=== PATIENT | male | born 1955 | race Caucasian/White ===

== ENCOUNTER 2024-01-20 11:17 | Day surgery (SDC) | payer MEDICARE, OTHER, SELFPAY ==
[2024-01-14 12:14] VITALS: BMI 25.1
[2024-01-20] VITALS (15 sets, daily range): BP systolic 108–159; BP diastolic 70–86; PULSE 74–98; RESP 8–19; TEMP 35.8–36.7; O2SAT 94–100; BMI 25.1
--- NOTE | 2024-01-20 | PATH_ITS ---
[facility] Accession Number: [id number] No. of containers..01 Tissue . 01 Material submitted: . prostate - PROSTATE CHIPS . 01 Diagnosis: A. PROSTATE CHIPS, EXCISIONAL BIOPSY: Benign prostatic stroma with benign epithelium and mild chronic inflammation. MRV 01/27/2024 1315 Local . 01 Electronically signed: . Mary Alice Cesar MD, Pathologist NPI- [id number] . 01 Gross description: . Received in formalin with two identifiers and prostate chips, are multiple michaels soft tissue fragments admixed with hemorrhagic material weighing less than 1 gram, and aggregating to 1.8 x 1.7 x 0.6 cm. Filtered and submitted entirely in A1. ([id number]) /MRV 01/22/2024 1836 Local . 01 Pathologist provided ICD-10: N40.1 . 01 CPT . 629720 Specimen Comment: A courtesy copy of this report has been sent to [phone] Performed at: [address] [address], [place], [place] [id number] MD Jass Lam MD Phone: [phone]
[2024-01-20] MEDS: LACTATED RINGERS 1,000 ML 21 ML IV ×2 (12:11→13:48)
[2024-01-20 12:17] LABS: Hemoglobin 15.4 g/dL (13.5-17.5)
--- NOTE | 2024-01-20 12:31 | PM.PREOP ---
Pre-operative Note Interval Note History & Physical reviewed/Exam performed by Physician: Yes Changes to H&P: No
[2024-01-20] MEDS: CEFAZOLIN 2 GM/100 ML PREMIX 100 ML IV (12:47)
[2024-01-20] MEDS: ACETAMINOPHEN IV 1,000 MG/100 ML VIAL 400 MG IV (12:54)
--- NOTE | 2024-01-20 12:56 | SUR.OPER ---
Lithotomy on padded OR bed, head on pillow, left arm padded and tucked, right arm secured on padded arm board at <90 degrees abduction. Legs secured in padded yellow fins stirrups.
[2024-01-20] MEDS: TRANEXAMIC ACID 1,000 MG in SODIUM CHLORIDE 0.9% 100 ML 200 MG IV ×2 (13:18→13:49)
--- NOTE | 2024-01-20 14:08 | PM.OP.1 ---
Operative Date/Time/Diagnoses Date of procedure: 01/20/24 Time of procedure: 13:45 Pre-op diagnosis: 1. Bladder outlet obstruction. 2. BPH. 3. Dissatisfaction with medical therapy. Post-op diagnosis: same Procedure & Clinicians Procedure: 1. Cystoscopy/Aquablation. 2. Cystoscopy/Transurethral resection of prostate. 3. Transrectal ultrasonography-diagnostic and guidance. Same procedure as scheduled: Yes Indications: 1. Bladder outlet obstruction. 2. BPH. 3. Dissatisfaction with medical therapy. Surgeon: Rosalba Chaudhary Click Yes if Unassisted: Yes Anesthesia Type: General Operative Notes Findings: 1. Unchanged versus endoscopic findings documented in preoperative note and consultation. Closure Type: not applicable Specimen(s): other (TUR chips specimen.) Applied: catheter (24 Andorran three-way hematuria catheter to normal saline continuous bladder irrigation.) Estimated Blood Loss (mL): 5 Procedure in detail: The patient was positioned in supine and administered general anesthesia. He was then repositioned in semi-lithotomy in the lower abdomen, genitalia, and groin then prepped and draped in sterile fashion. The transrectal ultrasound probe was positioned in the rectal vault appropriately a for optimal visualization of the lower urinary tract. The treatment hand piece was then inserted under direct visualization and positioned parallel and inappropriate alignment with the TRUS probe. Alternating between sagittal and transverse image views treatment planning was undertaken. Treatment depth was established in the transverse plane and boundary cursor placement was conducted at 3, 6, and 9 positions. In the sagittal view, the very proximal most margin of prostate to be treated, bladder neck, mid prostate, verumontanum and sphincter were delineated. Cursor boundary markers were placed were appropriate. The hand piece probe was then advanced into the bladder lumen and the water jet was calibrated at the 3, 6, and 9 positions in the transverse and sagittal imaging planes. First pass was then conducted under direct and ultrasonographic guidance. Re-evaluation revealed only minor adjustments were required in positioning the number 1, 2, and 3 positions. A 2nd treatment pass was then conducted. Now the treatment and Peace was removed and the resectoscope was introduced and passed the lower urinary tract under direct visualization. The bladder contents were then irrigated with the [employer] evacuator. The resectoscope was then fitted with the resecting loop and working element. Focal neck resection and cautery was undertaken from approximately the 2, to the 10 position at the bladder neck. Further TUR was conducted more proximally of the treated and devascularized tissue. Hemostasis was attained continuously and as indicated. Anteriorly, a few small mucosal bleeders were identified and were effectively cauterized. The resectoscope was then advanced into the bladder lumen and again the [employer] evacuator was utilized to clear the bladder lumen and prostate fossa of all tissue debris, chips, and clot. A final inspection revealed excellent hemostasis. The bladder was then left partially filled and the resectoscope was removed. A 24 Andorran, 3 way hematuria catheter was then advanced in the lower urinary tract over a malleable catheter guide. The balloon was inflated to 30 cc. A catheter tip syringe was then used to irrigate the catheter clear before connecting to sterile normal saline continuous bladder irrigation and gravity drainage. The patient was then awakened, transferred to [facility], then transferred to recovery in stable condition. Complications: none Post-operative Condition: stable Disposition: PACU Plan for aftercare: Admit to acute care.
--- NOTE | 2024-01-20 15:14 | SUR.PHASEI ---
PT transferred to room 219 in bed with cont bladder irrigation. SBAR report and bedside update to Whitney BA. Pt with 1 hospital belongings bag and his glasses.
[2024-01-20] MEDS: TAMSULOSIN 0.4 MG CAPSULE PO (17:37)
[2024-01-20] MEDS: FINASTERIDE 5 MG TABLET PO (17:37)
--- NOTE | 2024-01-21 00:16 | PC.NURSE ---
Pt had pain/pressure in penile area. 3 way cath was not draining into vaughn bag. Clamped irrigation bag. Manually irrigated catheter with 30ml of irrigation saline and several small clots came out and one moderate size blood clot in catheter as well. Pt stated relief of pressure. Urine now draining into bag that is red and clear. Will continue to monitor.
[2024-01-21 08:00] VITALS: BP 134/71; PULSE 63; RESP 15; TEMP 36.3; O2SAT 98
[2024-01-21 08:23] VITALS: BP 137/71
[2024-01-21] MEDS: ATORVASTATIN 20 MG TABLET PO (08:23)
[2024-01-21] MEDS: lisinopriL 10 MG TABLET PO (08:23)
--- NOTE | 2024-01-21 11:10 | CM.DANOTE ---
Addendum entered by LAZARUS Cabral 01/21/24 16:02: From RN, plan to keep pt another night due to bleeding. Anticipate dc tomorrow / when medically stable. YUNIOR Original Note: DCP Assessment Note Pt is a 68yo M here following planned aquablation with Dr. Chaudhary on 01.20.24 PCP Jesika Betancourt Payer Medicare and Maria M QIU reviewed EMR. Per RN, anticipate no DCP/CM needs. ASSISTANT PLANT CONTROLLER entered room and introduced self and role. Pt reports living alone in [facility] but his Dtr Haily ([phone]) is in town from [place] to assist him post op. Dtr Sridevi ([phone]) lives in [place] but cannot help him as much. Pt reports both of them are available as emergency contacts. Pt has been OOB ambulating/is indep/drives/active at baseline. Reports his urine has been redder/pinker than Dr. Chaudhary would like, and Jet reported to him that he may stay another night because of it but that Jte would be back later today to see how he's doing. Pt denies any DCP/CM needs. Plan: home with dtr Haily in [place] when medically stable, tonight vs tomorrow. No anticipated CM needs. CM team will follow as needed. LAZARUS Cabral Discharge Planning/Care Management Advanced directive, confirm from FAMILY Start: 01/20/24 16:25 Freq: Q24H Status: Active Protocol: Document 01/20/24 16:25 LW (Rec: 01/20/24 16:26 LW [id number]) Advance Directive, confirm on record Time 16:26 Person contacted patient Copy received No CM Discharge Assessment Start: 01/21/24 11:08 Freq: Status: Active Protocol: Document 01/21/24 11:08 SL (Rec: 01/21/24 11:10 SL [id number]) Discharge Planning Assessment Assigned Remote Sensing Engineer LAZARUS Banegas DPOA/Assigned Designee Name lisa Laureano Contact Information [phone] Advance Directives? Yes Advance Directives on File No History Provided By Patient Prior Living Arrangements House Household Members none Comment dtr Haily to stay with him after dc Type of transporation used prior to Drives own vehicle admit Independent with ADL's Yes Is patient alert and oriented? Yes Discharge Plan Home Transportation Arrangement dtr in POV Referrals Initiated None needed Whiteboard Updated in Patient Room with Yes name and ext. # of Remote Sensing Engineer Review Status In Process Please Provide Date Initial DC 01/21/24 Assessment Was Performed Next Review Type Continued Stay Review Pre-Anesthesia Assessment Start: 01/14/24 12:14 Freq: Status: Active Protocol: Document 01/14/24 12:14 CAB (Rec: 01/14/24 12:18 CAB [id number]) Pre-Anesthesia Assessment Patient Information Reviewed Via Chart Review Primary Care Provider Jesika Betancourt Seen Specialist in Last 12 Months Yes Specialist Seen Urologist Primary Language Romanian Change Management Coordinator Required No Height 180.34 cm Weight 81.647 kg Body Mass Index (BMI) 25.1 Anesthesia Review Requested No Emery Wheel Molder No Smoking Status Never smoker History of Falling (Recent or History of No ) Patient is completely paralyzed or No completely immobile Mental Status Oriented to own ability Currently Taking a Beta Anay No Anti-Coagulant Therapy No Cardiac Testing No Hx Pacemaker/ICD No Pacemaker Rep Required? No Cardiac Clearance Received No Bladder Pattern Retention Urinary Catheter Present No Hx Urinary Self Catheterization No Marital Status Lives With spouse Patient Discharge Plan Description Return Home
[2024-01-21] MEDS: TRANEXAMIC ACID 1,000 MG in SODIUM CHLORIDE 0.9% 100 ML 200 MG IV (15:06)
[2024-01-21] MEDS: SODIUM CHLORIDE IRRIG SOLUTION 1,000 ML, TRANEXAMIC ACID 1,000 MG IRR (15:40)
[2024-01-21] MEDS: FINASTERIDE 5 MG TABLET PO (16:02)
[2024-01-21] MEDS: TAMSULOSIN 0.4 MG CAPSULE PO (16:02)
--- NOTE | 2024-01-21 18:15 | P.PN_ITS ---
Subjective Subjective Date Patient Seen: 01/21/24 Time Patient Seen: 07:20 Interval history: Nasim is a 68-year-old male that underwent uncomplicated Aquablation in the afternoon of 01/20/2024 for large, obstructing prostate and history of recurrent urinary retention. His postop course has been unremarkable in terms of his ability to ambulate and transfer independently as well as tolerance of general diet and return of bowel function. However, consideration discharge has been delayed due to recurrent bleeding. He did have difficulties with blood and clot formation through the night which required hand irrigation. Situation seemed to be clear and upon ambulating this morning he again had some recurrent clot formation and bleeding requiring irrigation of a small amount of clot, further risks, further irrigation in addition to oral fluids. He had yet another episode in the late morning hours with ambulation. Since then he is remained at bed rest on irrigation and drinking copious free water. He has not had any recurrent bleeding since then. I personally visit of the patient at 7:10 a.m., 12 15 p.m. and 6:05 p.m. today. Exam Vital Signs (past 8 hours): Oxygen Delivery Method Room Air Oxygen Flow Rate 0 Narrative Exam Narrative: Resting comfortably supine in bed visiting with 1 of his daughters. Abdomen is soft and nontender. Genitalia Gutierrez indwelling with gonzalo colored urine without clot. Objective Labs 01/20/24 12:01 [facility] Medical History Incomplete bladder emptying History of elevated PSA Elevated PSA Elevated PSA BPH w urinary obs/LUTS BPH w urinary obs/LUTS History of urinary retention Urinary retention Social History household members: none Smoking Status: Never smoker Assessment & Plan Assessment & Plan narrative: Assessment: 1. Currently stable postop day 1 status post Aquablation. 2. Intermittent bleeding and catheter dysfunction status post Aquablation. Clinical decision is for continued close observation with nursing supervision and intervention as needed. Plan: 1. Continued relative bed rest and copious free water consumption. 2. Continue efforts to completely wean normal saline continuous bladder irrigation. 3. Trial ambulation in a.m. 01/22/2024.
[2024-01-22 08:00] VITALS: BP 148/75; PULSE 69; RESP 14; TEMP 36.2; O2SAT 99
[2024-01-22 08:20] VITALS: BP 148/75; PULSE 67
[2024-01-22] MEDS: ATORVASTATIN 20 MG TABLET PO (08:20)
[2024-01-22] MEDS: lisinopriL 10 MG TABLET PO (08:20)
--- NOTE | 2024-01-22 10:37 | CM.DPNOTE ---
DCP Note MACHINIST WOOD reviewed EMR. Pt is POD2. Per Dr. Chaudhary PN, pt dc delayed due to recurrent bleeding. Per chart review, light pink urine at 0745 this morning. Potential dc later today pending bleeding. Plan: home with lisa Johansen in POV when medically stable, likely today. No anticipated CM needs. CM team will follow as needed. Shari Doyle, LAZARUS
[2024-01-22] MEDS: FINASTERIDE 5 MG TABLET PO (16:27)
[2024-01-22] MEDS: TAMSULOSIN 0.4 MG CAPSULE PO (16:27)
--- NOTE | 2024-01-22 16:37 | PM.DS.1 ---
History of Present Illness History of Present Illness Date Patient Seen: 01/22/24 Time Patient Seen: 06:50 Chief complaint: Aquablation *OPB* Narrative: The patient is postop day 2 status post Aquablation. He reports having had a restful night with good sleep. No issues with catheter dysfunction or recurrent bleeding with bed rest status. He is tolerating general diet and has had return of bowel function by his report. Discharge Providers Provider Date of admission: 01/20/2024 Discharge Date: 01/22/24 Primary care physician: Jesika Betancourt MD Discharge provider: Rosalba Chaudhary MD Summary Hospital Course Discharge Diagnosis: 1. Bladder outlet obstruction. 2. History of recurrent urinary retention. Hospital Course: The patient was admitted on 01/20/2024 and underwent uncomplicated Aquablation under general anesthetic. His postoperative course was remarkable for difficulty with recurrent hematuria and need for evacuation of small volume clot with attempts at increase in physical activity and ambulation. The situation markedly improved with bed rest the 2nd postop night. Due to association of increase physical activity and recurrent hematuria, the three-way Gutierrez catheter was removed in the senior ecologist of this day. The patient subsequently voided multiple small volumes throughout the day. In the afternoon of 01/22/2024, urine clarity was grade 1 without clots and patient was comfortable. Postvoid residual was approximately 280 cc. Exam Vital Signs (past 8 hours): Oxygen Delivery Method Room Air Oxygen Flow Rate 0 Narrative Exam Narrative: Patient is resting comfortably in bed and in no distress. Abdomen is protuberant and soft. Bowel tones are normal. Genitalia-indwelling Gutierrez catheter with straw to gonzalo colored urine outflow on minimal irrigation or 8. No clots. Objective Labs 01/20/24 12:01 [facility] Medical History Incomplete bladder emptying History of elevated PSA Elevated PSA Elevated PSA BPH w urinary obs/LUTS BPH w urinary obs/LUTS History of urinary retention Urinary retention Social History household members: none Smoking Status: Never smoker Discharge Assessment & Plan Assessment and Plan Assessment: 1. Stable postop day 2 status post Aquablation. Plan of Treatment: 1. Discharge home. 2. Return to [place] [facility] in the afternoon 01/23/2024 for clinical update and PVR. Discharge Plan Discharge Plan Patient Disposition: Home Provider Discharge Comment: Please contact Urology Clinic to schedule your postop follow-up appointment. Discharge orders & Medications Discharge Orders: Discharge (Order); Ordered 01/22/24 Ordered By: Rosalba Chaudhary Prescriptions: New cephalexin 250 mg capsule 250 mg PO TID Qty: 10 0RF Continued atorvastatin 20 mg tablet 20 mg PO DAILY No Action lisinopril 20 mg tablet 20 mg PO DAILY finasteride 5 mg tablet 5 mg PO DAILY tamsulosin 0.4 mg capsule 0.4 mg PO DAILY Follow up/Referrals: Jesika Betancourt MD [Primary Care Provider] - Rosalba Chaudhary MD [Physician] - (please contact the urology clinic to schedule your follow up ) Diet/Activity/Treatments Diet: Diet as Tolerated Activity: Refrain from lifting objects greater than 15 lb x 4 weeks. Catheter: 2-way Gutierrez Catheter comment: Large bag-in-home and during night time. Leg bag-when out of home. Skin/Wound/Dressing Care Report to your healthcare provider any signs of infection, such as:: chills, fever, night sweats, increased pain and unusual drainage Visit Report/Discharge Packet Instructions: How to Care for Your Gutierrez Catheter -- Male, DI for Transurethral Resection of the Prostate Stand Alone Forms: Surgery Discharge Discharge Data Primary Care Provider: Jesika Betancourt Attending Provider: Rosalba Chaudhary
== END 2024-01-22 17:39 | disposition home or self-care (01) ==
LOC: OR 11:21 → AC 11:21
PROVIDERS: PCP Student in an Organized Health Care Education/Training Program; Referring Provider Specialist; Visit Provider Specialist
PROC: 0VT08ZZ Resection of Prostate, Via Natural or Artificial Opening Endoscopic (ICD-10-PCS; CPT 0421T; principal; 2024-01-20 12:45)
DX: N40.1 Benign prostatic hyperplasia with lower urinary tract symptoms (principal); N13.8 Other obstructive and reflux uropathy
CPT/HCPCS: 0421T; 36415; 85014; 85018; 86850; 86900; 86901; C2596; J0136; J0690; J1100; J1170; J2250; J2405; J2704; J3010; J3490

== ENCOUNTER → 2024-01-23 14:32 | Outpatient (CLI) | payer MEDICARE, OTHER, SELFPAY ==
[2024-01-20 16:12] VITALS: BMI 25.1
[2024-01-23 14:55] LABS: Appearance Urine UA Cloudy; Bacteria Urine Occasional (0-1); Color Urine UA Red; Culture Indicated Urine Specimen Cultured; Mucus Urine 1+ (Negative); RBC Urine >100/HPF (0-5/HPF); Squamous Epithelial Cell Urine 0-1 /HPF (0-5/HPF); Urine Volume Low Vol <10mL (spun); WBC Urine 10-30/HPF (0-5/HPF)
== END ==
PROVIDERS: PCP Student in an Organized Health Care Education/Training Program; Visit Provider Specialist
DX: N40.1 Benign prostatic hyperplasia with lower urinary tract symptoms (principal); N13.8 Other obstructive and reflux uropathy; R33.9 Retention of urine, unspecified
CPT/HCPCS: 51798; 81001; 87086

== ENCOUNTER → 2024-01-24 11:17 | Outpatient (CLI) | payer MEDICARE, OTHER, SELFPAY ==
[2024-01-20 16:12] VITALS: BMI 25.1
[2024-01-24 11:34] LABS: Appearance Urine UA CLOUDY; Bilirubin Urine UA NEGATIVE (NEGATIVE); Color Urine UA RED; Glucose Urine UA NEGATIVE (Negative); Ketones Urine UA 1+ (NEGATIVE); Leukocyte Esterase Urine UA 1+ (NEGATIVE); Nitrite Urine UA POSITIVE (Negative); Occult Blood Urine UA 3+ (Negative); Protein Urine UA 3+ (Negative); Specific Gravity Urine UA <=1.005 (1.000-1.035); pH Urine UA 6.5 (4.5-8.0)
[2024-01-24 11:36] LABS: Bacteria Urine Few (2-10); Culture Indicated Urine Specimen Cultured; RBC Urine 5-10/HPF (0-5/HPF); Squamous Epithelial Cell Urine 1-5 /HPF (0-5/HPF); Urine Volume 10mL (spun); WBC Urine 5-10/HPF (0-5/HPF)
== END ==
PROVIDERS: PCP Student in an Organized Health Care Education/Training Program; Visit Provider Specialist
DX: N40.1 Benign prostatic hyperplasia with lower urinary tract symptoms (principal); R33.9 Retention of urine, unspecified; N13.8 Other obstructive and reflux uropathy
CPT/HCPCS: 81001; 87086

== ENCOUNTER → 2024-01-28 15:27 | Outpatient (CLI) | payer MEDICARE, OTHER, SELFPAY ==
[2024-01-20 16:12] VITALS: BMI 25.1
[2024-01-28 16:02] LABS: Appearance Urine UA CLOUDY; Bilirubin Urine UA 2+ (NEGATIVE); Color Urine UA BROWN; Glucose Urine UA TRACE g/dL (Negative); Ketones Urine UA 1+ (NEGATIVE); Leukocyte Esterase Urine UA 1+ (NEGATIVE); Nitrite Urine UA POSITIVE (Negative); Occult Blood Urine UA 3+ (Negative); Protein Urine UA 3+ (Negative); pH Urine UA 6.5 (4.5-8.0)
[2024-01-28 16:07] LABS: Bacteria Urine None Seen; Ictotest Urine Negative (Negative); RBC Urine 30-100/HPF (0-5/HPF); Squamous Epithelial Cell Urine None Seen (0-5/HPF); Urine Volume 10mL (spun); WBC Urine 1-5/HPF (0-5/HPF)
[2024-01-28 16:08] LABS: Culture Indicated Urine Specimen Cultured
[2024-02-05 10:42] LABS: Appearance Urine UA CLEAR; Bilirubin Urine UA NEGATIVE (NEGATIVE); Color Urine UA YELLOW; Glucose Urine UA NEGATIVE (Negative); Ketones Urine UA NEGATIVE (NEGATIVE); Leukocyte Esterase Urine UA TRACE (NEGATIVE); Nitrite Urine UA NEGATIVE (Negative); Occult Blood Urine UA 3+ (Negative); Protein Urine UA 1+ (Negative); Specific Gravity Urine UA 1.025 (1.000-1.035); Urobilinogen Urine UA 0.2 E.U./dL (0.2); pH Urine UA 5.5 (4.5-8.0)
[2024-02-05 10:51] LABS: Bacteria Urine Occasional (0-1); Culture Indicated Urine Specimen Cultured; RBC Urine 10-30/HPF (0-5/HPF); Squamous Epithelial Cell Urine 1-5 /HPF (0-5/HPF); Urine Volume 10mL (spun); WBC Urine 5-10/HPF (0-5/HPF)
== END ==
PROVIDERS: PCP Student in an Organized Health Care Education/Training Program; Visit Provider Specialist
DX: N40.1 Benign prostatic hyperplasia with lower urinary tract symptoms (principal); N13.8 Other obstructive and reflux uropathy; R33.9 Retention of urine, unspecified
CPT/HCPCS: 51798; 81001; 87086

== ENCOUNTER → 2024-02-05 07:50 | Outpatient (CLI) | payer MEDICARE, OTHER, SELFPAY ==
[2024-01-20 16:12] VITALS: BMI 25.1
[2024-02-05 10:42] LABS: Appearance Urine UA CLEAR; Bilirubin Urine UA NEGATIVE (NEGATIVE); Color Urine UA YELLOW; Glucose Urine UA NEGATIVE (Negative); Ketones Urine UA NEGATIVE (NEGATIVE); Leukocyte Esterase Urine UA TRACE (NEGATIVE); Nitrite Urine UA NEGATIVE (Negative); Occult Blood Urine UA 3+ (Negative); Protein Urine UA 1+ (Negative); Specific Gravity Urine UA 1.025 (1.000-1.035); Urobilinogen Urine UA 0.2 E.U./dL (0.2); pH Urine UA 5.5 (4.5-8.0)
[2024-02-05 10:51] LABS: Bacteria Urine Occasional (0-1); Culture Indicated Urine Specimen Cultured; RBC Urine 10-30/HPF (0-5/HPF); Squamous Epithelial Cell Urine 1-5 /HPF (0-5/HPF); Urine Volume 10mL (spun); WBC Urine 5-10/HPF (0-5/HPF)
== END ==
PROVIDERS: PCP Student in an Organized Health Care Education/Training Program; Referring Provider Specialist; Visit Provider Specialist
DX: Z87.898 Personal history of other specified conditions (principal)
CPT/HCPCS: 81001; 87086